=== PATIENT | male | born 1965 | race Two or more races ===

== ENCOUNTER → 2017-02-03 | Outpatient (REF) | payer OTHER ==
[~2017-02-03] MED LIST: CITA20TA4; HYDR25TA6; POTA10TA67; VITA500055 PO
== END ==
LOC: M SFHCPLAZ 09:42
PROVIDERS: ATTEND Family Medicine
DX: E66.3 Overweight (principal)

== ENCOUNTER 2017-02-08 12:59 | Emergency (ER) | payer OTHER ==
[~2017-02-08] VITALS: Ht 167.6 cm; Wt 86.4 kg
[2017-02-08 12:59] VITALS: BP 158/105
[2017-02-08] MEDS ORDERED: CITA20TA4 (13:19)
[2017-02-08] MEDS ORDERED: VITA500055 PO (13:19)
[2017-02-08] MEDS ORDERED: POTA10TA67 (13:19)
[2017-02-08] MEDS ORDERED: HYDR25TA6 (13:19)
--- NOTE | 2017-02-08 17:35 | REP ---
CT brain without contrast: History: Headache and facial numbness. No comparison brain imaging. 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 Bone window settings demonstrate an intact bony calvarium. Visualized paranasal sinuses are clear. No intraorbital abnormality is appreciated. On soft tissue window settings, lateral, third, and fourth ventricles are normal in size and position. Thomason-white differentiation pattern is normal above and below the tentorium. There is no evidence of intracranial hemorrhage. No extra-axial fluid collection is seen. No mass, infarct, or midline shift is observed. Impression: Unremarkable noncontrast brain CT. Signed by Luis Anderson MD 02/08/2017 06:55 P
--- NOTE | 2017-02-08 20:06 | ECGEPIP ---
Stationary ECG Study [facility] - ED Test Date: 2017-02-08 Pat Name: MILDRED DEL ROSARIO Department: Room: - Gender: M Order Checker: : 1965 Requested By: JORGE Lafleur PA-C Order Number: [id number] Reading MD: Virgil Zee Measurements Intervals [place] Rate: 82 P: 10 NM: 152 QRS: -24 QRSD: 116 T: 31 QT: 404 QTc: 474 Interpretive Statements SINUS RHYTHM LEFT AXIS DEVIATION INCOMPLETE RIGHT BUNDLE BRANCH BLOCK MODERATE VOLTAGE CRITERIA FOR LVH, CONSIDER NORMAL VARIANT SIMILAR TO 10/01/13 Electronically Signed On 02-08-2017 20:06:33 EDT by Virgil Zee
== END 2017-02-08 19:11 | disposition home or self-care (01) ==
LOC: M ED 12:59
DX: R51 Headache (principal)

== ENCOUNTER → 2017-02-18 | Outpatient (REF) | payer OTHER ==
[2017-02-18 13:18] LABS: FOLATE 17.2 NG/ML
[2017-02-20 08:06] LABS: Lyme Disease IgG/IgM Antibodie <0.91 ISR (0.00-0.90); Lyme Disease IgM Ab Quantitati <0.80 index (0.00-0.79)
== END ==
LOC: M LABNEURO 11:37
PROVIDERS: ATTEND Psychiatry & Neurology Neurology
DX: R20.0 Anesthesia of skin (principal); R20.2 Paresthesia of skin

== ENCOUNTER → 2019-03-07 | Outpatient (REF) | payer OTHER ==
[~2019-03-07] MED LIST changes: -CITA20TA4; +CITA20TA6
[2019-03-07 13:04] LABS: BLOOD UREA NITROGEN 20 MG/DL (7-18); CALCIUM LEVEL 9.3 MG/DL (8.5-10.1); CARBON DIOXIDE LEVEL 28 MEQ/L (21-32); CHLORIDE LEVEL 101 MEQ/L (98-107); CREATININE FOR GFR 0.79 MG/DL (0.70-1.30); GLOMERULAR FILTRATION RATE > 60.0 (>56); GLUCOSE, FASTING 124 MG/DL (70-100); POTASSIUM SERUM 3.8 MEQ/L (3.5-5.1); SODIUM LEVEL 138 MEQ/L (136-145)
[2019-03-07 13:33] LABS: HEMOGLOBIN A1c 6.3 %
[2019-03-07 18:43] LABS: CREATININE, URINE 64.7 MG/DL; MALB URINE SIEMENS < 5.0 MG/L; MAU/CREAT RATIO 7.7 MCG/MG (0.0-30.0)
== END ==
LOC: M SFHCPLAZ 08:22
PROVIDERS: ATTEND Family Medicine
DX: E11.9 Type 2 diabetes mellitus without complications (principal); I10 Essential (primary) hypertension

== ENCOUNTER → 2019-10-25 | Outpatient (REF) | payer OTHER ==
[2019-10-25 11:29] LABS: BASO # 0.1 10^3/uL (0.0-0.2); BASO % 1.1 % (0.0-1.0); EOS # 0.2 10^3/uL (0.0-0.5); EOS % 3.7 % (0.0-3.0); HEMATOCRIT 40.9 % (42.0-52.0); HEMOGLOBIN 13.4 g/dl (13.5-17.5); LYMPH # 1.8 10^3/uL (1.5-5.0); MEAN CORPUSCULAR HEMOGLOBIN 29.4 pg (27.0-33.0); MEAN CORPUSCULAR HGB CONC 32.8 g/dl (32.0-36.5); MEAN CORPUSCULAR VOLUME 89.7 fl (80.0-96.0); MONO # 0.9 10^3/uL (0.0-0.8); MONO % 13.9 % (0.0-5.0); NEUTROPHILS # 3.2 10^3/uL (1.5-8.5); NEUTROPHILS % 51.5 % (36.0-66.0); PLATELET COUNT, AUTOMATED 367 10^3/uL (150-450); RED BLOOD COUNT 4.56 10^6/uL (4.30-6.10); WHITE BLOOD COUNT 6.3 10^3/uL (4.0-10.0)
[2019-10-25 11:54] LABS: ALBUMIN 3.5 GM/DL (3.2-5.2); ALT/SGPT 21 U/L (12-78); BILIRUBIN,TOTAL 0.8 MG/DL (0.2-1.0); BLOOD UREA NITROGEN 21 MG/DL (7-18); C REACTIVE PROTEIN QUANTITATIV < 0.30 MG/DL (0.00-0.30); CALCIUM LEVEL 8.6 MG/DL (8.5-10.1); CARBON DIOXIDE LEVEL 29 MEQ/L (21-32); CHLORIDE LEVEL 105 MEQ/L (98-107); CHOLESTEROL LEVEL 190 MG/DL (<200); CHOLESTEROL RISK RATIO 5.757 (<5); CREATININE FOR GFR 0.83 MG/DL (0.70-1.30); FREE T4 1.07 NG/DL (0.76-1.46); GLOMERULAR FILTRATION RATE > 60.0 (>56); GLUCOSE, FASTING 100 MG/DL (70-100); HDL CHOLESTEROL 33 MG/DL (>40); LDL CHOLESTEROL 114 MG/DL (<100); NON-HDL-C 157 MG/DL; POTASSIUM SERUM 4.2 MEQ/L (3.5-5.1); SODIUM LEVEL 138 MEQ/L (136-145); THYROID STIMULATING HORMONE 0.778 uIU/ML (0.358-3.740); TOTAL PROTEIN 6.8 GM/DL (6.4-8.2); TRIGLYCERIDES LEVEL 214 MG/DL (<150)
[2019-10-25 11:57] LABS: HEMOGLOBIN A1c 7.2 %
== END ==
LOC: M SFHCPLAZ 08:35
PROVIDERS: ATTEND Family Medicine
DX: E11.9 Type 2 diabetes mellitus without complications (principal); E78.2 Mixed hyperlipidemia; Z12.5 Encounter for screening for malignant neoplasm of prostate; I10 Essential (primary) hypertension

== ENCOUNTER → 2020-01-02 | Outpatient (REF) | payer OTHER ==
[~2020-01-02] MED LIST changes: +ASPI81TA26; +ATOR1TAB21; +D31000TA2 PO; +ESCI20TA; +LISI-538; +METF-838
[2020-02-01 19:58] LABS: AMORPHOUS SEDIMENT MODERATE (NEGATIVE); APPEARANCE, URINE TURBID (CLEAR); BACTERIA, URINE AUTO NEGATIVE (NEGATIVE); BILIRUBIN, URINE AUTO NEGATIVE (NEGATIVE); BLOOD, URINE BLOOD NEGATIVE (NEGATIVE); COLOR, URINE YELLOW (YELLOW); GLUCOSE, URINE (UA) AUTO NEGATIVE (NEGATIVE); KETONE, URINE AUTO NEGATIVE (NEGATIVE); LEUKOCYTE ESTERASE, URINE AUTO NEGATIVE (NEGATIVE); MUCUS, URINE SMALL (NEGATIVE); NITRITE, URINE AUTO NEGATIVE (NEGATIVE); PROTEIN, URINE AUTO NEGATIVE (NEGATIVE); RBC, URINE AUTO 0 /HPF (0-3); SPECIFIC GRAVITY URINE AUTO 1.017 (1.002-1.035); SQUAMOUS EPITHELIAL CELL UR AU 0 /HPF (0-6); UROBILINOGEN, URINE AUTO 0.2 mg/dL (0.0-2.0); WBC, URINE AUTO 1 /HPF (0-3)
[2020-02-13 13:27] LABS: PSA TOTAL See Separate Report
[2020-02-27 02:38] LABS: ALBUMIN 3.8 GM/DL (3.2-5.2); ALT/SGPT 28 U/L (12-78); BILIRUBIN,TOTAL 1.1 MG/DL (0.2-1.0); BLOOD UREA NITROGEN 19 MG/DL (7-18); CARBON DIOXIDE LEVEL 28 MEQ/L (21-32); CHLORIDE LEVEL 105 MEQ/L (98-107); CHOLESTEROL LEVEL 142 MG/DL (<200); CPK CREATINE PHOSPHOKINASE 254 U/L (39-308); CREATININE FOR GFR 0.86 MG/DL (0.70-1.30); GLOMERULAR FILTRATION RATE > 60.0 (>56); GLUCOSE, FASTING 107 MG/DL (70-100); HDL CHOLESTEROL 40 MG/DL (>40); LDL CHOLESTEROL 67 MG/DL (<100); MALB URINE SIEMENS 5.2 MG/L; NON-HDL-C 102 MG/DL; POTASSIUM SERUM 4.4 MEQ/L (3.5-5.1); SODIUM LEVEL 139 MEQ/L (136-145); TOTAL PROTEIN 7.3 GM/DL (6.4-8.2); TRIGLYCERIDES LEVEL 175 MG/DL (<150); VITAMIN B12 LEVEL 354 PG/ML (247-911)
== END ==
LOC: M SFHCPLAZ 08:57
PROVIDERS: ATTEND Family Medicine
DX: E78.2 Mixed hyperlipidemia (principal); E11.9 Type 2 diabetes mellitus without complications; I10 Essential (primary) hypertension; Z12.5 Encounter for screening for malignant neoplasm of prostate

== ENCOUNTER → 2020-01-21 | Outpatient (CLI) | payer OTHER | LOC: M LABSMTC 09:14 | PROVIDERS: ATTEND Anesthesiology | DX: Z01.812 Encounter for preprocedural laboratory examination (principal); Z20.828 Contact with and (suspected) exposure to other viral communicable diseases | CPT/HCPCS: C9803; U0003 ==

== ENCOUNTER 2020-01-26 07:34 | Day surgery (SDC) | payer OTHER ==
[~2020-01-26] VITALS: Ht 142.2 cm; Wt 81.2 kg
[~2020-01-26 07:34] MED LIST changes: +NS 1,000 ML IV ONE
[2020-01-26] MEDS ORDERED: LIDOCAINE 2% 100MG/5ML SDV (FOR ANES.) As Ordered ONE (08:02)
[2020-01-26] MEDS ORDERED: propofoL 200 MG/20 ML VIAL As Ordered ONE ×2 (08:02→10:40)
[2020-01-26 11:15] VITALS: BP 125/85
--- NOTE | 2020-01-31 11:38 | ROOR ---
Patient Name: Ashok Cespedes Procedure Date: 01/26/2020 10:14 AM Date of : 1965 Age: 54 Room: [facility] Gender: Male Note Status: Finalized Procedure: Colonoscopy Indications: Screening for colorectal malignant neoplasm Providers: Grant Garner MD Referring MD: Rufino Jaime MD Requesting Provider: Medicines: Monitored Anesthesia Care Complications: No immediate complications. Procedure: Pre-Anesthesia Assessment: - Prior to the procedure, a History and Physical was performed, and patient medications and allergies were reviewed. The patient is competent. The risks and benefits of the procedure and the sedation options and risks were discussed with the patient. All questions were answered and informed consent was obtained. Patient identification and proposed procedure were verified by the physician, the nurse and the anesthesiologist in the procedure room. Mental Status Examination: alert and oriented. Airway Examination: normal oropharyngeal airway and neck mobility. Respiratory Examination: clear to auscultation. CV Examination: normal. Prophylactic Antibiotics: The patient does not require prophylactic antibiotics. Prior Anticoagulants: The patient has taken no previous anticoagulant or antiplatelet agents. ASA Grade Assessment: II - A patient with mild systemic disease. After reviewing the risks and benefits, the patient was deemed in satisfactory condition to undergo the procedure. The anesthesia plan was to use monitored anesthesia care (MAC). Immediately prior to administration of medications, the patient was re-assessed for adequacy to receive sedatives. The heart rate, respiratory rate, oxygen saturations, blood pressure, adequacy of pulmonary ventilation, and response to care were monitored throughout the procedure. The physical status of the patient was re-assessed after the procedure. The Colonoscope was introduced through the anus and advanced to the terminal ileum, with identification of the appendiceal orifice and IC valve. The colonoscopy was performed without difficulty. The patient tolerated the procedure well. The quality of the bowel preparation was good. The terminal ileum, ileocecal valve, appendiceal orifice, and rectum were photographed. Scope insertion time was 3 minutes. Scope withdrawal time was 9 minutes. The total duration of the procedure was 12 minutes. Findings: The perianal and digital rectal examinations were normal. The terminal ileum appeared normal. Four sessile polyps were found in the ascending colon. The polyps were 5 to 10 mm in size. These polyps were removed with a cold snare. Resection and retrieval were complete. Verification of patient identification for the specimen was done by the physician and nurse using the patient's name, date and medical record number. Estimated blood loss was minimal. For hemostasis, one hemostatic clip was successfully placed. There was no bleeding at the end of the procedure. A 4 mm polyp was found in the recto-sigmoid colon. The polyp was sessile. The polyp was removed with a cold snare. Resection and retrieval were complete. A few small-mouthed diverticula were found in the sigmoid colon. There was no evidence of diverticular bleeding. Non-bleeding external and internal hemorrhoids were found during retroflexion. The hemorrhoids were medium-sized. Impression: - The examined portion of the ileum was normal. - Four 5 to 10 mm polyps in the ascending colon, removed with a cold snare. Resected and retrieved. Clip was placed. - One 4 mm polyp at the recto-sigmoid colon, removed with a cold snare. Resected and retrieved. - Mild diverticulosis in the sigmoid colon. There was no evidence of diverticular bleeding. - Non-bleeding external and internal hemorrhoids. Recommendation: - Patient has a contact number available for emergencies. The signs and symptoms of potential delayed complications were discussed with the patient. Return to normal activities tomorrow. Written discharge instructions were provided to the patient. - High fiber diet. - Continue present medications. - Await pathology results. - Repeat colonoscopy in 3 - 5 years for surveillance based on pathology results. - Telephone GI clinic for pathology results in 2 weeks. - Return to primary care physician. Grant Garner MD Grant Garner MD 01/26/2020 11:17:28 AM Electronically signed by Grant Garner MD Number of Addenda: 0 Note Initiated On: 01/26/2020 10:14 AM Estimated Blood Loss: Estimated blood loss was minimal.
== END 2020-01-26 11:28 | disposition home or self-care (01) ==
LOC: M OPP 07:34
PROVIDERS: ATTEND Internal Medicine Gastroenterology
DX: Z12.11 Encounter for screening for malignant neoplasm of colon (principal); D12.2 Benign neoplasm of ascending colon; K64.8 Other hemorrhoids; K57.30 Diverticulosis of large intestine without perforation or abscess without bleeding; E11.9 Type 2 diabetes mellitus without complications; I10 Essential (primary) hypertension; Z79.82 Long term (current) use of aspirin; Z79.84 Long term (current) use of oral hypoglycemic drugs; Z79.899 Other long term (current) drug therapy

== ENCOUNTER → 2020-03-18 | Outpatient (CLI) | payer OTHER ==
[~2020-03-18] MED LIST changes: -NS 1,000 ML IV ONE
[2020-03-21 23:07] LABS: PSA TOTAL 0.9 ng/mL (0.0-4.0)
== END ==
LOC: M PLALAB 15:26
PROVIDERS: ATTEND Urology
DX: R97.20 Elevated prostate specific antigen [PSA] (principal)

== ENCOUNTER → 2020-04-09 | Outpatient (REF) | payer OTHER ==
[2020-04-09 13:56] LABS: BASO # 0.1 10^3/uL (0.0-0.2); EOS # 0.4 10^3/uL (0.0-0.5); EOS % 5.7 % (0.0-3.0); HEMATOCRIT 42.3 % (42.0-52.0); HEMOGLOBIN 13.4 g/dl (13.5-17.5); LYMPH # 1.1 10^3/uL (1.5-5.0); MEAN CORPUSCULAR HEMOGLOBIN 28.8 pg (27.0-33.0); MEAN CORPUSCULAR HGB CONC 31.7 g/dl (32.0-36.5); MONO # 1.1 10^3/uL (0.0-0.8); MONO % 15.4 % (0.0-5.0); NEUTROPHILS # 4.5 10^3/uL (1.5-8.5); NEUTROPHILS % 62.3 % (36.0-66.0); PLATELET COUNT, AUTOMATED 393 10^3/uL (150-450); RED BLOOD COUNT 4.65 10^6/uL (4.30-6.10); WHITE BLOOD COUNT 7.3 10^3/uL (4.0-10.0)
[2020-04-09 14:01] LABS: APPEARANCE, URINE HAZY (CLEAR); BACTERIA, URINE AUTO NEGATIVE (NEGATIVE); BILIRUBIN, URINE AUTO NEGATIVE (NEGATIVE); BLOOD, URINE BLOOD NEGATIVE (NEGATIVE); CALCIUM OXALATE CRYSTALS SMALL; COLOR, URINE YELLOW (YELLOW); GLUCOSE, URINE (UA) AUTO NEGATIVE (NEGATIVE); KETONE, URINE AUTO NEGATIVE (NEGATIVE); LEUKOCYTE ESTERASE, URINE AUTO NEGATIVE (NEGATIVE); MUCUS, URINE SMALL (NEGATIVE); NITRITE, URINE AUTO NEGATIVE (NEGATIVE); PROTEIN, URINE AUTO NEGATIVE (NEGATIVE); RBC, URINE AUTO 0 /HPF (0-3); SPECIFIC GRAVITY URINE AUTO 1.021 (1.002-1.035); SQUAMOUS EPITHELIAL CELL UR AU 0 /HPF (0-6); WBC, URINE AUTO 1 /HPF (0-3)
[2020-04-09 14:26] LABS: ALT/SGPT 27 U/L (12-78); BILIRUBIN,DIRECT 0.2 MG/DL (0.0-0.2); BILIRUBIN,TOTAL 1.1 MG/DL (0.2-1.0); BLOOD UREA NITROGEN 19 MG/DL (7-18); CALCIUM LEVEL 9.6 MG/DL (8.5-10.1); CARBON DIOXIDE LEVEL 28 MEQ/L (21-32); CHLORIDE LEVEL 104 MEQ/L (98-107); CREATININE FOR GFR 0.82 MG/DL (0.70-1.30); FREE T4 0.95 NG/DL (0.76-1.46); GLOMERULAR FILTRATION RATE > 60.0 (>56); GLUCOSE, FASTING 86 MG/DL (70-100); POTASSIUM SERUM 4.2 MEQ/L (3.5-5.1); SODIUM LEVEL 139 MEQ/L (136-145); TOTAL PROTEIN 7.1 GM/DL (6.4-8.2); VITAMIN B12 LEVEL 393 PG/ML (247-911)
[2020-04-09 14:43] LABS: HEMOGLOBIN A1c 6.4 %
[2020-04-13 23:09] LABS: Methylmalonic Acid 93 nmol/L (0-378)
== END ==
LOC: M SFHCPLAZ 11:31
PROVIDERS: ATTEND Family Medicine
DX: E11.9 Type 2 diabetes mellitus without complications (principal); I10 Essential (primary) hypertension; E78.2 Mixed hyperlipidemia

== ENCOUNTER → 2020-08-09 | Outpatient (REF) | payer OTHER ==
[~2020-08-09] MED LIST changes: -ESCI20TA; +ESCI20TA16; -LISI-538; +LISI20TA33
[2020-08-09 14:13] LABS: HEMOGLOBIN A1c 6.3 %
[2020-08-09 14:34] LABS: BLOOD UREA NITROGEN 18 MG/DL (7-18); CARBON DIOXIDE LEVEL 30 MEQ/L (21-32); CHLORIDE LEVEL 104 MEQ/L (98-107); CREATININE FOR GFR 0.69 MG/DL (0.70-1.30); GLOMERULAR FILTRATION RATE > 60.0 (>56); GLUCOSE, FASTING 102 MG/DL (70-100); POTASSIUM SERUM 4.4 MEQ/L (3.5-5.1); SODIUM LEVEL 138 MEQ/L (136-145)
[2020-08-09 14:35] LABS: ALT/SGPT 24 U/L (12-78); BILIRUBIN,TOTAL 1.2 MG/DL (0.2-1.0); CALCIUM LEVEL 9.3 MG/DL (8.5-10.1); FERRITIN 235 NG/ML (26-388); TOTAL PROTEIN 7.2 GM/DL (6.4-8.2)
[2020-08-09 14:41] LABS: PTH INTACT 49.6 PG/ML (18.5-88.0); VITAMIN B12 LEVEL 439 PG/ML (247-911)
[2020-08-12 11:22] LABS: ALBUMIN 4.36 GM/DL (3.29-5.55); ALBUMIN % 60.5 % (55.8-66.1); ALPHA-1-GLOBULIN % 3.5 % (2.9-4.9); ALPHA-1-GLOBULINS 0.25 GM/DL (0.17-0.41); ALPHA-2-GLOBULINS 0.72 GM/DL (0.42-0.99); BETA-1-GLOBULINS 0.48 GM/DL (0.28-0.60); BETA-1-GLOBULINS % 6.7 % (4.7-7.2); BETA-2-GLOBULINS 0.42 GM/DL (0.19-0.55); BETA-2-GLOBULINS % 5.8 % (3.2-6.5); GAMMA GLOBULIN % 13.5 % (11.1-18.8); GAMMA GLOBULINS 0.97 GM/DL (0.65-1.58)
== END ==
LOC: M SFHCPLAZ 09:53
PROVIDERS: ATTEND Family Medicine
DX: E53.8 Deficiency of other specified B group vitamins (principal); E11.9 Type 2 diabetes mellitus without complications; Z12.5 Encounter for screening for malignant neoplasm of prostate; I10 Essential (primary) hypertension

== ENCOUNTER → 2020-12-04 | Outpatient (CLI) | payer OTHER ==
--- NOTE | 2020-12-04 09:26 | REP ---
INDICATION: GILBERT'S DX COMPARISON: None. TECHNIQUE: Real time kingsley scale ultrasound examination using curved array transducer. FINDINGS: Liver is normal in contour, size, and echogenicity without focal hepatic lesions identified. Pancreas is incompletely evaluated due to interposed bowel gas. The gallbladder is surgically absent. No biliary ductal dilatation is appreciated and the common bile duct measures 4.0 mm diameter. Right kidney is normal in reniform shape measuring 11.1 x 5.4 x 5.7 cm without hydronephrosis but with suspected small nonobstructing calculi up to 9 mm. No ascites in the visualized right upper quadrant. IMPRESSION: Nephrolithiasis suggested. Examination was somewhat limited due to overlying bowel gas. <Electronically signed by Ramiro Kiran > 12/04/20 [id number]
== END ==
LOC: M RAD 08:45
PROVIDERS: ATTEND Family Medicine
DX: E80.4 Gilbert syndrome (principal)

== ENCOUNTER → 2020-12-27 | Outpatient (CLI) | payer OTHER ==
[2020-12-27 10:18] LABS: HEMOGLOBIN A1c 6.6 %
[2020-12-27 10:34] LABS: C REACTIVE PROTEIN QUANTITATIV < 0.30 MG/DL (0.00-0.30); CHOLESTEROL LEVEL 152 MG/DL (<200); CPK CREATINE PHOSPHOKINASE 363 U/L (39-308); HDL CHOLESTEROL 40 MG/DL (>40); LDL CHOLESTEROL 87 MG/DL (<100); NON-HDL-C 112 MG/DL; TRIGLYCERIDES LEVEL 124 MG/DL (<150)
== END ==
LOC: M PLALAB 07:56
PROVIDERS: ATTEND Family Medicine
DX: E11.9 Type 2 diabetes mellitus without complications (principal); E78.2 Mixed hyperlipidemia; Z12.5 Encounter for screening for malignant neoplasm of prostate; J30.89 Other allergic rhinitis

== ENCOUNTER → 2021-01-09 | Outpatient (REF) | payer OTHER | LOC: M LAB REF 19:07 | PROVIDERS: ATTEND Family Medicine | DX: L82.1 Other seborrheic keratosis (principal) ==

== ENCOUNTER → 2021-10-13 | Outpatient (CLI) | payer BC ==
[~2021-10-13] MED LIST changes: -D31000TA2 PO; +VITA100093 PO
[2021-10-13 17:45] LABS: BASO # 0.1 10^3/uL (0.0-0.2); BASO % 0.7 % (0.0-1.0); EOS # 0.4 10^3/uL (0.0-0.5); EOS % 4.4 % (0.0-3.0); HEMATOCRIT 38.6 % (42.0-52.0); HEMOGLOBIN 12.7 g/dl (13.5-17.5); LYMPH % 22.1 % (24.0-44.0); MEAN CORPUSCULAR HEMOGLOBIN 29.7 pg (27.0-33.0); MEAN CORPUSCULAR HGB CONC 32.9 g/dl (32.0-36.5); MEAN CORPUSCULAR VOLUME 90.4 fl (80.0-96.0); MONO # 1.1 10^3/uL (0.0-0.8); MONO % 12.4 % (2.0-8.0); NEUTROPHILS # 5.4 10^3/uL (1.5-8.5); NEUTROPHILS % 60.1 % (36.0-66.0); PLATELET COUNT, AUTOMATED 388 10^3/uL (150-450); RED BLOOD COUNT 4.27 10^6/uL (4.30-6.10)
[2021-10-13 18:18] LABS: C REACTIVE PROTEIN QUANTITATIV < 0.30 MG/DL (0.00-0.30); FERRITIN 129 NG/ML (26-388); FREE T4 0.93 NG/DL (0.76-1.46); TOTAL PROTEIN 7.4 GM/DL (6.4-8.2)
[2021-10-13 18:19] LABS: VITAMIN B12 LEVEL 361 PG/ML (247-911)
[2021-10-13 18:43] LABS: ERYTHROCYTE SEDIMENTATION RATE 22 mm/hr (0-20)
[2021-10-14 13:53] LABS: ALBUMIN % 58.1 % (55.8-66.1); ALPHA-1-GLOBULIN % 3.8 % (2.9-4.9); ALPHA-2-GLOBULINS % 11.2 % (7.1-11.8); BETA-1-GLOBULINS % 6.7 % (4.7-7.2); GAMMA GLOBULIN % 14.2 % (11.1-18.8)
[2021-10-14 13:54] LABS: ALPHA-1-GLOBULINS 0.28 GM/DL (0.17-0.41); ALPHA-2-GLOBULINS 0.83 GM/DL (0.42-0.99); BETA-2-GLOBULINS 0.44 GM/DL (0.19-0.55); GAMMA GLOBULINS 1.05 GM/DL (0.65-1.58)
== END ==
LOC: M PLALAB 14:52
PROVIDERS: ATTEND Family Medicine
DX: E53.8 Deficiency of other specified B group vitamins (principal)

== ENCOUNTER → 2021-12-03 | Outpatient (CLI) | payer BC | LOC: M SLEEP HO 13:07 | PROVIDERS: ATTEND Family Medicine | DX: R40.0 Somnolence (principal) ==

== ENCOUNTER → 2022-02-12 | Outpatient (CLI) | payer BC ==
[2022-02-12 11:36] LABS: HEMOGLOBIN A1c 6.8 %
[2022-02-12 12:04] LABS: ALBUMIN 3.6 GM/DL (3.2-5.2); ALT/SGPT 32 U/L (12-78); BILIRUBIN,TOTAL 0.7 MG/DL (0.2-1.0); BLOOD UREA NITROGEN 18 MG/DL (7-18); CALCIUM LEVEL 8.6 MG/DL (8.5-10.1); CARBON DIOXIDE LEVEL 26 MEQ/L (21-32); CHLORIDE LEVEL 106 MEQ/L (98-107); CHOLESTEROL LEVEL 133 MG/DL (<200); CREATININE FOR GFR 0.73 MG/DL (0.70-1.30); GLOMERULAR FILTRATION RATE > 60.0 (>56); GLUCOSE, FASTING 106 MG/DL (70-100); HDL CHOLESTEROL 38 MG/DL (>40); LDL CHOLESTEROL 64 MG/DL (<100); NON-HDL-C 95 MG/DL; NT-PRO BNP 9 PG/ML (<125); POTASSIUM SERUM 4.3 MEQ/L (3.5-5.1); SODIUM LEVEL 138 MEQ/L (136-145); TOTAL PROTEIN 6.8 GM/DL (6.4-8.2); TRIGLYCERIDES LEVEL 156 MG/DL (<150)
[2022-02-13 07:07] LABS: APOLIPOPROTEIN B/A-1 RATIO 0.7 ratio (0.0-0.7)
== END ==
LOC: M PLALAB 08:46
PROVIDERS: ATTEND Family Medicine
DX: E11.9 Type 2 diabetes mellitus without complications (principal); Z12.5 Encounter for screening for malignant neoplasm of prostate; E78.2 Mixed hyperlipidemia; I10 Essential (primary) hypertension
CPT/HCPCS: 36415; 80053; 80061; 82172; 83036; 83880; G0103

== ENCOUNTER → 2022-05-07 | Outpatient (REF) | payer BC ==
[2022-05-08 12:20] LABS: APPEARANCE, URINE MANUAL CLOUDY (CLEAR); COLOR, URINE MANUAL YELLOW (YELLOW)
[2022-05-08 12:21] LABS: BILIRUBIN, URINE MANUAL NEGATIVE (NEGATIVE); BLOOD URINE MANUAL POSITIVE (NEGATIVE); GLUCOSE, URINE (UA) MANUAL NEGATIVE (NEGATIVE); KETONE, URINE MANUAL NEGATIVE (NEGATIVE); LEUKOCYTE ESTERASE, URINE MAN POSITIVE (NEGATIVE); NITRITE, URINE MANUAL NEGATIVE (NEGATIVE); PROTEIN, URINE MANUAL NEGATIVE (NEGATIVE); SPECIFIC GRAVITY,URINE MANUAL 1.025 (1.002-1.035); UROBILINOGEN, URINE MANUAL NORMAL (NORMAL)
[2022-05-08 12:56] LABS: WBC, URINE TNTC /hpf (0-3)
[2022-05-08 12:57] LABS: CALCIUM OXALATE CRYSTALS,URINE MOD AMOUNT /hpf; SQUAMOUS EPITHELIAL CELL URINE SMALL AMOUNT /hpf (SMALL AMT)
[2022-05-08 12:58] LABS: BACTERIA, URINE MOD AMOUNT; HYALINE CAST, URINE NONE SEEN /lpf (0-1)
[2022-05-08 13:10] LABS: GC DNA AMPLIFICATION NEGATIVE (NEGATIVE)
== END ==
LOC: M SFHCPLAZ 09:58
PROVIDERS: ATTEND Family Medicine
DX: N41.1 Chronic prostatitis (principal)

== ENCOUNTER → 2022-05-15 | Outpatient (CLI) | payer BC ==
[2022-05-15 10:14] LABS: BASO # 0.1 10^3/uL (0.0-0.2); BASO % 0.9 % (0.0-1.0); EOS # 0.3 10^3/uL (0.0-0.5); HEMATOCRIT 32.5 % (42.0-52.0); HEMOGLOBIN 10.1 g/dl (13.5-17.5); LYMPH # 1.8 10^3/uL (1.5-5.0); LYMPH % 25.8 % (24.0-44.0); MEAN CORPUSCULAR HEMOGLOBIN 28.2 pg (27.0-33.0); MEAN CORPUSCULAR HGB CONC 31.1 g/dl (32.0-36.5); MEAN CORPUSCULAR VOLUME 90.8 fl (80.0-96.0); MONO % 14.1 % (2.0-8.0); NEUTROPHILS # 3.7 10^3/uL (1.5-8.5); NEUTROPHILS % 53.5 % (36.0-66.0); PLATELET COUNT, AUTOMATED 385 10^3/uL (150-450); RED BLOOD COUNT 3.58 10^6/uL (4.30-6.10); WHITE BLOOD COUNT 6.9 10^3/uL (4.0-10.0)
[2022-05-15 10:43] LABS: PROSTATIC SPECIFIC AG MONITOR 6.16 NG/ML (< 4.00)
[2022-05-15 10:45] LABS: ALBUMIN 3.3 G/DL (3.2-5.2); ALKALINE PHOSPHATASE 72 U/L (46-116); ALT/SGPT 19 U/L (7.0-40); AST/SGOT 24 U/L (<34); BILIRUBIN,TOTAL 0.7 MG/DL (0.3-1.2); BLOOD UREA NITROGEN 17 MG/DL (9-23); CALCIUM LEVEL 8.6 MG/DL (8.5-10.1); CARBON DIOXIDE LEVEL 23 MMOL/L (20-31); CHLORIDE LEVEL 107 MMOL/L (98-107); CREATININE FOR GFR 0.76 MG/DL (0.70-1.30); GLOMERULAR FILTRATION RATE > 60.0 (>56); GLUCOSE, FASTING 98 MG/DL (60-100); POTASSIUM SERUM 4.6 MMOL/L (3.5-5.1); SODIUM LEVEL 140 MMOL/L (136-145); TOTAL PROTEIN 5.9 G/DL (5.7-8.2)
== END ==
LOC: M PLALAB 08:13
PROVIDERS: ATTEND Family Medicine
DX: N41.4 Granulomatous prostatitis (principal)

== ENCOUNTER → 2022-05-18 | Outpatient (CLI) | payer BC | LOC: M SLEEP 05-15 20:00 | PROVIDERS: ATTEND Physician Assistant | DX: G47.33 Obstructive sleep apnea (adult) (pediatric) (principal) ==

== ENCOUNTER → 2022-05-20 | Outpatient (CLI) | payer BC ==
[2022-05-20 17:23] LABS: BASO # 0.1 10^3/uL (0.0-0.2); BASO % 0.7 % (0.0-1.0); EOS # 0.4 10^3/uL (0.0-0.5); HEMATOCRIT 33.6 % (42.0-52.0); HEMOGLOBIN 10.6 g/dl (13.5-17.5); LYMPH % 27.8 % (24.0-44.0); MEAN CORPUSCULAR HEMOGLOBIN 28.6 pg (27.0-33.0); MEAN CORPUSCULAR HGB CONC 31.5 g/dl (32.0-36.5); MEAN CORPUSCULAR VOLUME 90.8 fl (80.0-96.0); MONO % 13.7 % (2.0-8.0); NEUTROPHILS # 3.8 10^3/uL (1.5-8.5); PLATELET COUNT, AUTOMATED 405 10^3/uL (150-450); WHITE BLOOD COUNT 7.2 10^3/uL (4.0-10.0)
[2022-05-20 17:43] LABS: IRON (FE) 34 UG/DL (65-175); PERCENT SATURATION 9.2 % (19.7-50.0); TOTAL IRON BINDING CAPACITY 370 UG/DL (250-425)
[2022-05-20 17:44] LABS: ALBUMIN 3.4 G/DL (3.2-5.2); ALKALINE PHOSPHATASE 72 U/L (46-116); ALT/SGPT 21 U/L (7.0-40); AST/SGOT 28 U/L (<34); BILIRUBIN,TOTAL 0.7 MG/DL (0.3-1.2); BLOOD UREA NITROGEN 13 MG/DL (9-23); CALCIUM LEVEL 9.1 MG/DL (8.5-10.1); CARBON DIOXIDE LEVEL 27 MMOL/L (20-31); CHLORIDE LEVEL 104 MMOL/L (98-107); CREATININE FOR GFR 0.73 MG/DL (0.70-1.30); GLOMERULAR FILTRATION RATE > 60.0 (>56); GLUCOSE, FASTING 91 MG/DL (60-100); POTASSIUM SERUM 4.3 MMOL/L (3.5-5.1); SODIUM LEVEL 138 MMOL/L (136-145); TOTAL PROTEIN 6.4 G/DL (5.7-8.2)
[2022-05-20 17:47] LABS: FERRITIN 39.2 NG/ML (10.5-307.3)
[2022-05-20 17:48] LABS: VITAMIN B12 LEVEL 398 PG/ML (211-911)
== END ==
LOC: M PLALAB 15:27
PROVIDERS: ATTEND Physician Assistant
DX: D64.9 Anemia, unspecified (principal); N41.0 Acute prostatitis
CPT/HCPCS: 36415; 80053; 82607; 82728; 83550; 85025; 85046; G0103

== ENCOUNTER → 2022-07-07 | Outpatient (REF) | payer BC | LOC: M SFHCPLAZ 10:01 | PROVIDERS: ATTEND Physician Assistant | DX: N41.1 Chronic prostatitis (principal) ==

== ENCOUNTER → 2022-08-27 | Outpatient (REF) | payer BC | LOC: M SFHCPLAZ 16:50 | PROVIDERS: ATTEND Physician Assistant | DX: R30.0 Dysuria (principal) ==

== ENCOUNTER → 2022-11-23 | Outpatient (CLI) | payer BC ==
[2022-11-23 09:41] LABS: BASO # 0.1 10^3/uL (0.0-0.2); BASO % 0.9 % (0.0-1.0); EOS # 0.5 10^3/uL (0.0-0.5); EOS % 6.8 % (0.0-3.0); HEMATOCRIT 38.7 % (42.0-52.0); HEMOGLOBIN 12.4 g/dl (13.5-17.5); LYMPH # 1.6 10^3/uL (1.5-5.0); LYMPH % 21.5 % (24.0-44.0); MEAN CORPUSCULAR HEMOGLOBIN 28.1 pg (27.0-33.0); MEAN CORPUSCULAR VOLUME 87.8 fl (80.0-96.0); MONO # 0.8 10^3/uL (0.0-0.8); MONO % 10.5 % (2.0-8.0); NEUTROPHILS # 4.6 10^3/uL (1.5-8.5); NEUTROPHILS % 59.8 % (36.0-66.0); PLATELET COUNT, AUTOMATED 376 10^3/uL (150-450); RED BLOOD COUNT 4.41 10^6/uL (4.30-6.10); WHITE BLOOD COUNT 7.6 10^3/uL (4.0-10.0)
[2022-11-23 09:49] LABS: C REACTIVE PROTEIN QUANTITATIV < 0.40 MG/DL (<1.0)
[2022-11-23 09:50] LABS: CHOLESTEROL LEVEL 181 MG/DL (<200); CHOLESTEROL RISK RATIO 6.11 (<5); CPK CREATINE PHOSPHOKINASE 163 U/L (46-171); FERRITIN 63.4 NG/ML (10.5-307.3); HDL CHOLESTEROL 29.6 MG/DL (>40); LDL CHOLESTEROL 90.6 MG/DL (<100); NON-HDL-C 151.4 MG/DL; PTH INTACT 73.4 PG/ML (18.5-88.0); TRIGLYCERIDES LEVEL 304 MG/DL (<150)
[2022-11-23 09:52] LABS: TOTAL 25(OH) VITAMIN D 24.7 NG/ML (20.0-100.0)
[2022-11-23 09:55] LABS: INR 0.91; PROTHROMBIN TIME 12.5 SECONDS (12.5-14.5)
[2022-11-23 09:56] LABS: PARTIAL THROMBOPLASTIN TIME 23.7 SECONDS (24.8-34.2)
[2022-11-23 09:57] LABS: HEMOGLOBIN A1c 6.5 % (4.0-6.0)
== END ==
LOC: M LAB 08:30
PROVIDERS: ATTEND Family Medicine
DX: E78.2 Mixed hyperlipidemia (principal); E11.9 Type 2 diabetes mellitus without complications; E55.9 Vitamin D deficiency, unspecified; D50.9 Iron deficiency anemia, unspecified; E80.4 Gilbert syndrome

== ENCOUNTER → 2023-04-16 | Outpatient (CLI) | payer BC ==
[2023-04-16 09:13] LABS: BASO # 0.1 10^3/uL (0.0-0.2); BASO % 1.2 % (0.0-1.0); EOS # 0.5 10^3/uL (0.0-0.5); HEMOGLOBIN 13.4 g/dl (13.5-17.5); LYMPH # 1.7 10^3/uL (1.5-5.0); LYMPH % 23.4 % (24.0-44.0); MEAN CORPUSCULAR HEMOGLOBIN 29.1 pg (27.0-33.0); MEAN CORPUSCULAR HGB CONC 31.9 g/dl (32.0-36.5); MEAN CORPUSCULAR VOLUME 91.1 fl (80.0-96.0); MONO # 0.9 10^3/uL (0.0-0.8); MONO % 11.8 % (2.0-8.0); NEUTROPHILS # 4.2 10^3/uL (1.5-8.5); NEUTROPHILS % 55.9 % (36.0-66.0); PLATELET COUNT, AUTOMATED 393 10^3/uL (150-450); RED BLOOD COUNT 4.61 10^6/uL (4.30-6.10); WHITE BLOOD COUNT 7.5 10^3/uL (4.0-10.0)
[2023-04-16 09:48] LABS: IRON (FE) 53 UG/DL (65-175); LDH LACTATE DEHYDROGENASE 190 U/L (120-246); PERCENT SATURATION 13.8 % (19.7-50.0); TOTAL IRON BINDING CAPACITY 384 UG/DL (250-425)
[2023-04-16 09:49] LABS: BLOOD UREA NITROGEN 17 MG/DL (9-23); CREATININE FOR GFR 0.74 MG/DL (0.70-1.30); FOLATE 18.5 NG/ML (>5.4); GLOMERULAR FILTRATION RATE > 60.0 (>56)
[2023-04-16 09:50] LABS: VITAMIN B12 LEVEL 420 PG/ML (211-911)
[2023-04-16 09:51] LABS: FERRITIN 111.7 NG/ML (10.5-307.3)
== END ==
LOC: M LAB 08:06
PROVIDERS: ATTEND Internal Medicine Gastroenterology
DX: K63.5 Polyp of colon (principal)

== ENCOUNTER → 2023-04-16 | Outpatient (CLI) | payer BC ==
[2023-04-30 11:46] LABS: HEMOGLOBIN A1c 6.5 % (4.0-6.0)
== END ==
LOC: M LAB 08:08
PROVIDERS: ATTEND Family Medicine
DX: E53.8 Deficiency of other specified B group vitamins (principal); D50.9 Iron deficiency anemia, unspecified; Z12.5 Encounter for screening for malignant neoplasm of prostate; E11.9 Type 2 diabetes mellitus without complications
CPT/HCPCS: 83036; 86364; G0103

== ENCOUNTER → 2023-04-30 | Outpatient (REF) | payer BC ==
[~2023-04-30] MED LIST changes: -ASPI81TA26; +ASPI81TA26 PO; -ATOR1TAB21; +ATOR1TAB21 PO; +CLAR10CA3 PO; +FERR32TA PO; +LEXA1TAB2 PO; -LISI20TA33; +LISI20TA33 PO; -METF-838; +METF-838 PO
[2023-04-30 12:32] LABS: CREATININE, URINE 89.5 MG/DL; MALB URINE SIEMENS < 3.0 MG/L; MAU/CREAT RATIO 3.3 MCG/MG (0.0-30.0)
== END ==
LOC: M SFHCPLAZ 11:36
PROVIDERS: ATTEND Family Medicine
DX: Z12.5 Encounter for screening for malignant neoplasm of prostate (principal); D50.9 Iron deficiency anemia, unspecified; E11.9 Type 2 diabetes mellitus without complications

== ENCOUNTER 2023-05-06 06:37 | Day surgery (SDC) | payer BC ==
[~2023-05-06] VITALS: Ht 167.6 cm; Wt 84.4 kg
[~2023-05-06 06:37] MED LIST changes: +NS 1,000 ML IV ONE
[2023-05-06] MEDS ORDERED: LIDOCAINE 2% 100MG/5ML SDV (FOR ANES.) As Ordered ONE (07:41)
[2023-05-06] MEDS ORDERED: fentaNYL 100 MCG/2 ML INJECTION As Ordered ONE (07:41)
[2023-05-06] MEDS ORDERED: propofoL 200 MG/20 ML VIAL As Ordered ONE (07:41)
[2023-05-06] MEDS ORDERED: ePHEDrine SULFATE 25 MG/5 ML(5MG/ML) SYRINGE As Ordered ONE (07:51)
[2023-05-06 08:31] VITALS: BP 132/78; TEMP 97.2; O2SAT 96
== END 2023-05-06 08:33 | disposition home or self-care (01) ==
LOC: M OPP 06:37
PROVIDERS: ATTEND Internal Medicine Gastroenterology
DX: Z12.11 Encounter for screening for malignant neoplasm of colon (principal); Z86.010 Personal history of colon polyps; K64.4 Residual hemorrhoidal skin tags; K64.8 Other hemorrhoids; D50.9 Iron deficiency anemia, unspecified; K31.89 Other diseases of stomach and duodenum; E11.9 Type 2 diabetes mellitus without complications; G47.30 Sleep apnea, unspecified; Z79.02 Long term (current) use of antithrombotics/antiplatelets; Z79.82 Long term (current) use of aspirin; Z79.84 Long term (current) use of oral hypoglycemic drugs; Z79.899 Other long term (current) drug therapy; Z99.89 Dependence on other enabling machines and devices
CPT/HCPCS: 43239; 45378; 88305; J3010

== ENCOUNTER → 2023-08-27 | Outpatient (CLI) | payer BC ==
[~2023-08-27] MED LIST changes: -NS 1,000 ML IV ONE
[2023-08-27 13:48] LABS: BASO # 0.1 10^3/uL (0.0-0.2); BASO % 0.7 % (0.0-1.0); EOS # 0.6 10^3/uL (0.0-0.5); EOS % 7.9 % (0.0-3.0); HEMOGLOBIN 12.9 g/dl (13.5-17.5); LYMPH # 1.6 10^3/uL (1.5-5.0); LYMPH % 23.4 % (24.0-44.0); MEAN CORPUSCULAR HEMOGLOBIN 29.3 pg (27.0-33.0); MEAN CORPUSCULAR HGB CONC 32.3 g/dl (32.0-36.5); MEAN CORPUSCULAR VOLUME 90.9 fl (80.0-96.0); MONO % 14.9 % (2.0-8.0); NEUTROPHILS # 3.7 10^3/uL (1.5-8.5); NEUTROPHILS % 52.5 % (36.0-66.0); PLATELET COUNT, AUTOMATED 362 10^3/uL (150-450)
[2023-08-27 14:17] LABS: HEMOGLOBIN A1c 6.7 % (4.0-6.0)
[2023-08-27 14:24] LABS: ALBUMIN 3.5 G/DL (3.2-5.2); ALKALINE PHOSPHATASE 81 U/L (46-116); ALT/SGPT 24 U/L (7.0-40); AST/SGOT 26 U/L (<34); BILIRUBIN,TOTAL 1.1 MG/DL (0.3-1.2); BLOOD UREA NITROGEN 18 MG/DL (9-23); CALCIUM LEVEL 9.4 MG/DL (8.5-10.1); CARBON DIOXIDE LEVEL 28 MMOL/L (20-31); CHLORIDE LEVEL 106 MMOL/L (98-107); CHOLESTEROL LEVEL 127 MG/DL (<200); CHOLESTEROL RISK RATIO 3.94 (<5); CREATININE FOR GFR 0.75 MG/DL (0.70-1.30); GLOMERULAR FILTRATION RATE > 60.0 (>56); GLUCOSE, FASTING 99 MG/DL (60-100); HDL CHOLESTEROL 32.2 MG/DL (>40); LDL CHOLESTEROL 69.2 MG/DL (<100); NON-HDL-C 94.8 MG/DL; POTASSIUM SERUM 4.6 MMOL/L (3.5-5.1); PTH INTACT 52.5 PG/ML (18.5-88.0); SODIUM LEVEL 136 MMOL/L (136-145); TOTAL PROTEIN 6.5 G/DL (5.7-8.2); TRIGLYCERIDES LEVEL 128 MG/DL (<150)
[2023-08-27 14:26] LABS: TOTAL 25(OH) VITAMIN D 28.1 NG/ML (20.0-100.0)
== END ==
LOC: M PLALAB 09:28
PROVIDERS: ATTEND Family Medicine
DX: D50.9 Iron deficiency anemia, unspecified (principal); E11.9 Type 2 diabetes mellitus without complications; E55.9 Vitamin D deficiency, unspecified